=== PATIENT | female | born 1960 | race Caucasian/White ===

== ENCOUNTER 2023-10-29 02:44 | Outpatient (RCR) | payer MEDICAID, SELFPAY ==
[2023-10-10] MEDS: Normal Saline Flush 10 ML SYR IVP (10:57)
[2023-10-10 11:10] LABS: Abs Immature Grans 0.04 10^3/uL (0.0-0.06); Absolute Basophil Count 0.08 10^3/uL (0.0-0.2); Absolute Eosinophil Count 1.01 10^3/uL (0.0-0.7); Absolute Lymphocyte Count 3.07 10^3/uL (1.2-3.4); Absolute Neutrophil Count 4.87 10^3/uL (1.2-6.7); Basophils % 0.8 %; Eosinophils % 10.2 %; HCT 39.3 % (36.0-46.0); HGB 13.2 g/dL (11.2-15.7); Immature Grans % 0.4 %; Lymphocytes % 31.1 %; MCH 27.9 pg (27.0-33.0); MCHC 33.6 % (32.0-36.0); MCV 83 fL (80-95); MPV 10.7 fL (8.0-11.0); Monocytes % 8.1 %; Neutrophils % 49.4 %; Platelet Count 238 10^3/uL (130-400); RBC 4.73 10^6/uL (3.93-5.22); RDW 15.7 % (11.7-14.6); RDW-SD 46.6 fL; WBC 9.87 10^3/uL (4.4-10.8)
[2023-10-10 11:26] LABS: ALT 37 U/L (14-59); AST 22 U/L (15-37); Albumin 3.7 g/dL (3.4-5.0); Alkaline Phosphatase 120 U/L (46-116); Anion Gap 6.1 mmol/L (3-11); BUN 11 mg/dL (7-18); Bilirubin, Total 0.26 mg/dL (0.2-1.0); CO2 28.9 mmol/L (21.0-32.0); CREATININE 0.9 mg/dL (0.55-1.02); Calcium 9.2 mg/dL (8.5-10.1); Chloride 108 mmol/L (98-107); Estimated GFR 71.83 (mL/min/1.73m2); Glucose 97 mg/dL (74-106); Potassium 4.2 mmol/L (3.5-5.1); Sodium 143 mmol/L (136-145)
[2023-10-29] MEDS: Normal Saline Flush 10 ML SYR IVP (10:25)
[2023-10-29 10:38] LABS: Abs Immature Grans 0.03 10^3/uL (0.0-0.06); Absolute Basophil Count 0.05 10^3/uL (0.0-0.2); Absolute Eosinophil Count 0.03 10^3/uL (0.0-0.7); Absolute Lymphocyte Count 2.31 10^3/uL (1.2-3.4); Absolute Monocyte Count 0.64 10^3/uL (0.1-0.8); Basophils % 0.6 %; Eosinophils % 0.4 %; HCT 35.1 % (36.0-46.0); HGB 11.6 g/dL (11.2-15.7); Immature Grans % 0.4 %; Lymphocytes % 29.4 %; MCH 27.7 pg (27.0-33.0); Monocytes % 8.1 %; Neutrophils % 61.1 %; Platelet Count 74 10^3/uL (130-400); RBC 4.19 10^6/uL (3.93-5.22); RDW 17.6 % (11.7-14.6); RDW-SD 50.8 fL; WBC 7.86 10^3/uL (4.4-10.8)
[2023-10-29 10:54] LABS: Diff Comment Diff Reviewed; MCV 84 fL (80-95); RBC Morphology Normal
[2023-10-29 10:58] LABS: ALT 36 U/L (14-59); AST 28 U/L (15-37); Albumin 3.4 g/dL (3.4-5.0); Alkaline Phosphatase 130 U/L (46-116); Anion Gap 9.2 mmol/L (3-11); BUN 14 mg/dL (7-18); Bilirubin, Total 0.34 mg/dL (0.2-1.0); CO2 26.8 mmol/L (21.0-32.0); CREATININE 0.9 mg/dL (0.55-1.02); Calcium 8.7 mg/dL (8.5-10.1); Chloride 107 mmol/L (98-107); Estimated GFR 71.83 (mL/min/1.73m2); Glucose 121 mg/dL (74-106); Potassium 3.3 mmol/L (3.5-5.1); Sodium 143 mmol/L (136-145); Total Protein 6.5 g/dL (6.4-8.2)
== END 2023-11-05 23:59 | disposition home or self-care (01) ==
LOC: INF 02:44
PROVIDERS: PCP Family Medicine; Visit Provider Physician Assistant Medical
DX: C50.411 Malignant neoplasm of upper-outer quadrant of right female breast (principal); C50.911 Malignant neoplasm of unspecified site of right female breast; Z17.0 Estrogen receptor positive status [ER+]; Z79.899 Other long term (current) drug therapy
CPT/HCPCS: 36591; 80053; 85025

== ENCOUNTER 2023-12-17 01:41 | Outpatient (CLI) | payer MEDICAID, SELFPAY ==
--- NOTE | 2023-12-17 09:30 | DI.US_ITS ---
APPROVED REPORT EXAM: Comprehensive 2D, Doppler, and color-flow Echocardiogram Patient Location: Out-Patient Neon Technician: Rosa Ortega RDCS (AE) Indications: Malignant neoplasm of UOQ of rt breast, Estrogen receptor Other Information Study Quality: Adequate Conclusion Mild concentric left ventricular hypertrophy. Ejection fraction is 60%. Wall motion is normal Normal right ventricular size and function Both atria are normal in size Aortic valve is mildly sclerotic and trileaflet with trace regurgitation Trace mitral and tricuspid regurgitation Estimated right ventricular systolic pressure is 30 mmHg Wall motion Left Ventricle The left ventricle is normal size. The left ventricular systolic function is normal. The left ventric ular ejection fraction is within the normal range. GLS is 15% Mild concentric left ventricular hypert rophy. There is normal LV segmental wall motion. There is no ventricular septal defect visualized. LV EF is 60%. Right Ventricle The right ventricle is normal size. The right ventricular systolic function is normal. Atria The left atrium size is normal. The right atrium size is normal. The interatrial septum is intact wit h no evidence for an atrial septal defect. Aortic Valve The Aortic valve is mildly sclerotic. Aortic valve is trileaflet. No hemodynamically significant valv ular aortic stenosis. Trace aortic regurgitation. Mitral Valve The mitral valve is normal in structure. No evidence of mitral valve stenosis. Trace mitral regurgita tion. Tricuspid Valve The tricuspid valve is normal in structure. There is no tricuspid valve stenosis. Trace tricuspid reg urgitation. The RVSP is 30.2 mmHg. Pulmonic Valve The pulmonary valve is normal in structure. There is no pulmonic valvular stenosis. Trace pulmonic re gurgitation. Great Vessels The aortic root is normal in size. The ascending aorta is normal in size. Aortic arch is normal in ca liber. IVC is normal in size and collapses >50% with inspiration. Pericardium There is no pericardial effusion. 2D Dimensions IVSD d PLAX 1.20 cm F: 0.6-1.0 Ao Root d 2.98 cm F: 2.7 - 3.3 LVPW d PLAX 1.24 cm F: 0.6 - 1.0 Ao Asc Diam d 2.88 cm F: 2.3 - 3.1 LVID d PLAX 4.05 cm F: 3.8 - 5.2 LVDs 2.81 cm F: 2.2 - 3.5 LV EF Teichholz 58.5 % FS 30.53 % LV EDV (Teich) 72.1 mL LV ESV (Teich) 29.9 mL M-Mode TAPSE 2.47 cm (M/F) >1.7 Auto EF LV EDV A4C 81.2 mL LV EDV A2C 107.3 mL LV EDV BP 92.5 mL LV ESV A4C 33.2 mL LV ESV A2C 39.8 mL LV ESV BP 36.2 mL LVEF(%) A4C 59.2 % LVEF(%) A2C 62.9 % LVEF(%) BP 60.9 % LV SV A4C 48.1 ml LV SV A2C 67.5 ml LV SV BP 56.4 ml LV CO A4C 4.3 L/min LV CO A2C 6.2 L/min LV CO BP 5.3 L/min HR A4C 90.45 BPM HR A2C 91.84 BPM LV EDV Index (BP) LV Strain Long Pk Overal Avg (s) 14.98 LA Volume LA Length A4C 4.5 cm LA Length A2C 4.1 cm LA Area A4C s 12.40 cm2 LA Area A2C s 12.57 cm2 LA Vol A4C A-L 28.78 mL LA Vol A2C A-L 32.87 mL LA Vol Biplane A-L 32.4 mL LA Vol/BSA A4C A-L LA Vol/BSA A2C A-L LA Vol/BSA BP A-L 14.7 mL/m2 LA Vol A4C MOD 26.4 mL LA Vol A2C MOD 28.9 mL LA Vol BP MOD 28.8 mL RA Volume RA Area A4C 9.5 cm2 RA ESV A4C (A-L) 21.6mL RA Vol/BSA A4C A-L RA Length A4C 3.6 cm RA ESV A4C (MOD) 20.1mL LV Diastology MV E' medial 0.092 (>0.07 m/s) MV E Vmax 0.66 (0.4-1.3 m/s) MV E/E' MED 7.16 (<14) MV A Vmax 1.05 (0.4-1.3 m/s) MV E' lateral 0.123 (>0.1 m/s) E/A Ratio 0.6 MV E/E' LAT 5.34 (<14) MV E' Average 0.108 m/s MV E/E'(average) 6.12 Aortic Valve AoV Vmax 1.93 m/s LVOT Vmax 1.45 m/s AoV Peak Grad 41.0 mmHg LVOT Peak Grad 8.4 mmHg AoV Area (Vmax) 2.38 cm2 LVOT VTI 0.222 m AoV VTI 0.309 m LVOT Mean Grad 5.3 mmHg AoV Mean Rik. 1.35 m/s LVOT SV 70.55 mL AoV Mean Grad 8.4 mmHg LVOT Diam s 2.00 cm AoV Area (VTI) 2.28 cm2 AV Regurg Peak Gr. 14.93 mmHg Velocity Ratio 0.75 AR Decel Pepin 2.3m/sec2 AR DT 1794 msec AR PHT 520 msec AR Vmax 4.09 m/s Mitral Valve MV DT 236 (160-240 msec) MV Vmax TIPS 1.22 m/s MV Mean Grad 2.8 (<2mmHg) MV VTI 0.246 m Pulmonary Valve PV Vmax 1.11 (0.5-1.5 m/s) RVOT Vmax 0.93 m/s PV Peak Grad 4.9 mmHg RVOT Peak Gr. 3.5 mmHg PV Mean Rik 0.82 m/s RVOT VTI 0.177 m PV Mean Grad 3.0 mmHg RVOT Mean Gr. 1.9 mmHg Tricuspid Valve RA Pressure 3.00 mmHg TR Vmax 2.61 m/s TV S' 0.19 m/s TR Peak Grad 27.1 mmHg RVSP (TR) 30.2 mmHg
== END 2023-12-17 02:01 ==
LOC: DI 01:41
PROVIDERS: PCP Family Medicine; Visit Provider Internal Medicine
DX: I51.7 Cardiomegaly (principal); I34.0 Nonrheumatic mitral (valve) insufficiency
CPT/HCPCS: 93306

== ENCOUNTER 2023-12-31 01:54 | Outpatient (RCR) | payer MEDICAID, SELFPAY ==
[2023-12-10] MEDS: Normal Saline Flush 10 ML SYR IVP (09:44)
[2023-12-10 09:54] LABS: Abs Immature Grans 0.03 10^3/uL (0.0-0.06); Absolute Basophil Count 0.04 10^3/uL (0.0-0.2); Absolute Eosinophil Count 0.05 10^3/uL (0.0-0.7); Absolute Monocyte Count 0.65 10^3/uL (0.1-0.8); Absolute Neutrophil Count 3.71 10^3/uL (1.2-6.7); Basophils % 0.6 %; Eosinophils % 0.7 %; HGB 11.2 g/dL (11.2-15.7); Immature Grans % 0.4 %; Lymphocytes % 36.7 %; MCH 29.6 pg (27.0-33.0); MCHC 32.9 % (32.0-36.0); MCV 90 fL (80-95); MPV 10.5 fL (8.0-11.0); Monocytes % 9.2 %; Neutrophils % 52.4 %; Platelet Count 107 10^3/uL (130-400); RBC 3.79 10^6/uL (3.93-5.22); RDW-SD 65.8 fL; WBC 7.08 10^3/uL (4.4-10.8)
[2023-12-10 10:14] LABS: ALT 36 U/L (14-59); AST 19 U/L (15-37); Albumin 3.7 g/dL (3.4-5.0); Alkaline Phosphatase 141 U/L (46-116); Anion Gap 5.6 mmol/L (3-11); BUN 15 mg/dL (7-18); Bilirubin, Total 0.33 mg/dL (0.2-1.0); CO2 28.4 mmol/L (21.0-32.0); CREATININE 0.9 mg/dL (0.55-1.02); Chloride 108 mmol/L (98-107); Estimated GFR 71.83 (mL/min/1.73m2); Glucose 94 mg/dL (74-106); Potassium 4.1 mmol/L (3.5-5.1); Sodium 142 mmol/L (136-145)
[2023-12-31 10:52] LABS: Abs Immature Grans 0.03 10^3/uL (0.0-0.06); Absolute Basophil Count 0.02 10^3/uL (0.0-0.2); Absolute Eosinophil Count 0.03 10^3/uL (0.0-0.7); Absolute Monocyte Count 0.49 10^3/uL (0.1-0.8); Absolute Neutrophil Count 3.14 10^3/uL (1.2-6.7); Basophils % 0.3 %; Eosinophils % 0.5 %; HCT 31.5 % (36.0-46.0); HGB 10.4 g/dL (11.2-15.7); Immature Grans % 0.5 %; Lymphocytes % 41.2 %; MCH 30.6 pg (27.0-33.0); MCV 93 fL (80-95); MPV 11.4 fL (8.0-11.0); Monocytes % 7.8 %; Neutrophils % 49.7 %; Platelet Count 111 10^3/uL (130-400); RDW 18.6 % (11.7-14.6); RDW-SD 62.9 fL; WBC 6.31 10^3/uL (4.4-10.8)
[2023-12-31 11:09] LABS: ALT 32 U/L (14-59); AST 19 U/L (15-37); Albumin 3.6 g/dL (3.4-5.0); Alkaline Phosphatase 129 U/L (46-116); Anion Gap 7.3 mmol/L (3-11); BUN 13 mg/dL (7-18); Bilirubin, Total 0.34 mg/dL (0.2-1.0); CO2 27.7 mmol/L (21.0-32.0); CREATININE 0.8 mg/dL (0.55-1.02); Calcium 8.7 mg/dL (8.5-10.1); Chloride 108 mmol/L (98-107); Estimated GFR 82.74 (mL/min/1.73m2); Glucose 94 mg/dL (74-106); Potassium 3.6 mmol/L (3.5-5.1); Sodium 143 mmol/L (136-145); Total Protein 6.6 g/dL (6.4-8.2)
[2023-12-31] MEDS: Normal Saline Flush 10 ML SYR IVP (11:54)
== END 2024-01-05 23:59 | disposition home or self-care (01) ==
LOC: INF 01:54
PROVIDERS: PCP Family Medicine; Visit Provider Physician Assistant Medical
DX: C50.411 Malignant neoplasm of upper-outer quadrant of right female breast (principal); Z17.0 Estrogen receptor positive status [ER+]; C50.911 Malignant neoplasm of unspecified site of right female breast; Z79.899 Other long term (current) drug therapy; Z45.2 Encounter for adjustment and management of vascular access device
CPT/HCPCS: 36591; 80053; 85025

== ENCOUNTER 2024-03-28 00:37 | Outpatient (RCR) | payer MEDICAID, SELFPAY ==
[2024-03-28] MEDS: Normal Saline Flush 10 ML SYR IVP (09:20)
[2024-03-28 09:44] LABS: Abs Immature Grans 0.02 10^3/uL (0.0-0.06); Absolute Basophil Count 0.06 10^3/uL (0.0-0.2); Absolute Eosinophil Count 0.36 10^3/uL (0.0-0.7); Absolute Lymphocyte Count 3.23 10^3/uL (1.2-3.4); Absolute Monocyte Count 0.46 10^3/uL (0.1-0.8); Absolute Neutrophil Count 3.55 10^3/uL (1.2-6.7); Basophils % 0.8 %; Eosinophils % 4.7 %; HCT 37.9 % (36.0-46.0); HGB 12.5 g/dL (11.2-15.7); Immature Grans % 0.3 %; Lymphocytes % 42.1 %; MCH 29.7 pg (27.0-33.0); MCV 90 fL (80-95); Neutrophils % 46.1 %; Platelet Count 175 10^3/uL (130-400); RBC 4.21 10^6/uL (3.93-5.22); RDW 13.6 % (11.7-14.6); RDW-SD 44.9 fL; WBC 7.68 10^3/uL (4.4-10.8)
[2024-03-28 10:04] LABS: ALT 38 U/L (14-59); AST 24 U/L (15-37); Albumin 3.8 g/dL (3.4-5.0); Alkaline Phosphatase 121 U/L (46-116); Anion Gap 7.4 mmol/L (3-11); BUN 18 mg/dL (7-18); Bilirubin, Total 0.31 mg/dL (0.2-1.0); CO2 27.6 mmol/L (21.0-32.0); CREATININE 0.9 mg/dL (0.55-1.02); Calcium 9.3 mg/dL (8.5-10.1); Chloride 108 mmol/L (98-107); Estimated GFR 71.39 (mL/min/1.73m2); Glucose 90 mg/dL (74-106); Potassium 3.9 mmol/L (3.5-5.1); Sodium 143 mmol/L (136-145); Total Protein 7.1 g/dL (6.4-8.2)
== END 2024-04-04 23:59 | disposition home or self-care (01) ==
LOC: INF 00:37
PROVIDERS: PCP Family Medicine; Visit Provider Physician Assistant Medical
DX: C50.411 Malignant neoplasm of upper-outer quadrant of right female breast (principal); Z79.899 Other long term (current) drug therapy
CPT/HCPCS: 36591; 80053; 85025

== ENCOUNTER 2024-04-18 00:21 | Outpatient (RCR) | payer MEDICAID, SELFPAY ==
[2024-04-18] MEDS: Normal Saline Flush 10 ML SYR IVP (09:24)
[2024-04-18 09:31] LABS: Abs Immature Grans 0.04 10^3/uL (0.0-0.06); Absolute Basophil Count 0.08 10^3/uL (0.0-0.2); Absolute Eosinophil Count 0.36 10^3/uL (0.0-0.7); Absolute Lymphocyte Count 4.01 10^3/uL (1.2-3.4); Absolute Monocyte Count 0.54 10^3/uL (0.1-0.8); Absolute Neutrophil Count 3.58 10^3/uL (1.2-6.7); Basophils % 0.9 %; Eosinophils % 4.2 %; HCT 40.1 % (36.0-46.0); HGB 13.5 g/dL (11.2-15.7); Immature Grans % 0.5 %; Lymphocytes % 46.6 %; MCH 29.1 pg (27.0-33.0); MCHC 33.7 % (32.0-36.0); MCV 86 fL (80-95); MPV 10.9 fL (8.0-11.0); Monocytes % 6.3 %; Neutrophils % 41.5 %; Platelet Count 194 10^3/uL (130-400); RBC 4.64 10^6/uL (3.93-5.22); RDW 14.1 % (11.7-14.6); RDW-SD 44.3 fL; WBC 8.61 10^3/uL (4.4-10.8)
[2024-04-18 09:47] LABS: ALT 46 U/L (14-59); AST 34 U/L (15-37); Albumin 3.7 g/dL (3.4-5.0); Alkaline Phosphatase 123 U/L (46-116); Anion Gap 9.4 mmol/L (3-11); BUN 16 mg/dL (7-18); Bilirubin, Total 0.4 mg/dL (0.2-1.0); CO2 29.6 mmol/L (21.0-32.0); CREATININE 0.9 mg/dL (0.55-1.02); Calcium 9.6 mg/dL (8.5-10.1); Chloride 104 mmol/L (98-107); Estimated GFR 71.39 (mL/min/1.73m2); Glucose 95 mg/dL (74-106); Potassium 3.8 mmol/L (3.5-5.1); Sodium 143 mmol/L (136-145); Total Protein 7.6 g/dL (6.4-8.2)
== END 2024-05-05 23:59 | disposition home or self-care (01) ==
LOC: INF 00:21
PROVIDERS: PCP Family Medicine; Visit Provider Physician Assistant Medical
DX: Z79.899 Other long term (current) drug therapy (principal); C50.411 Malignant neoplasm of upper-outer quadrant of right female breast; Z17.0 Estrogen receptor positive status [ER+]
CPT/HCPCS: 36591; 80053; 85025

== ENCOUNTER 2024-05-30 00:33 | Outpatient (RCR) | payer MEDICAID, SELFPAY ==
[2024-05-09 09:50] LABS: Abs Immature Grans 0.03 10^3/uL (0.0-0.06); Absolute Basophil Count 0.06 10^3/uL (0.0-0.2); Absolute Lymphocyte Count 2.98 10^3/uL (1.2-3.4); Absolute Monocyte Count 0.48 10^3/uL (0.1-0.8); Absolute Neutrophil Count 3.71 10^3/uL (1.2-6.7); Basophils % 0.8 %; HCT 38.9 % (36.0-46.0); HGB 12.9 g/dL (11.2-15.7); Immature Grans % 0.4 %; Lymphocytes % 39.4 %; MCH 28.2 pg (27.0-33.0); MCHC 33.2 % (32.0-36.0); MCV 85 fL (80-95); MPV 11.9 fL (8.0-11.0); Monocytes % 6.3 %; Neutrophils % 49.1 %; Platelet Count 132 10^3/uL (130-400); RBC 4.58 10^6/uL (3.93-5.22); RDW 14.8 % (11.7-14.6); RDW-SD 45.2 fL; WBC 7.56 10^3/uL (4.4-10.8)
[2024-05-09 10:08] LABS: ALT 41 U/L (14-59); AST 37 U/L (15-37); Albumin 3.6 g/dL (3.4-5.0); Alkaline Phosphatase 107 U/L (46-116); Anion Gap 8.2 mmol/L (3-11); BUN 14 mg/dL (7-18); Bilirubin, Total 0.4 mg/dL (0.2-1.0); CO2 28.8 mmol/L (21.0-32.0); CREATININE 0.8 mg/dL (0.55-1.02); Calcium 9.5 mg/dL (8.5-10.1); Chloride 105 mmol/L (98-107); Estimated GFR 82.23 (mL/min/1.73m2); Glucose 133 mg/dL (74-106); Potassium 3.5 mmol/L (3.5-5.1); Sodium 142 mmol/L (136-145); Total Protein 7.3 g/dL (6.4-8.2)
[2024-05-09] MEDS: Normal Saline Flush 10 ML SYR IVP (10:57)
[2024-05-30 09:23] LABS: Abs Immature Grans 0.04 10^3/uL (0.0-0.06); Absolute Basophil Count 0.06 10^3/uL (0.0-0.2); Absolute Eosinophil Count 0.21 10^3/uL (0.0-0.7); Absolute Lymphocyte Count 2.77 10^3/uL (1.2-3.4); Absolute Neutrophil Count 3.49 10^3/uL (1.2-6.7); Basophils % 0.9 %; HCT 37.8 % (36.0-46.0); HGB 12.3 g/dL (11.2-15.7); Immature Grans % 0.6 %; Lymphocytes % 39.7 %; MCH 28.2 pg (27.0-33.0); MCHC 32.5 % (32.0-36.0); MCV 87 fL (80-95); MPV 11.3 fL (8.0-11.0); Monocytes % 5.7 %; Neutrophils % 50.1 %; Platelet Count 106 10^3/uL (130-400); RBC 4.36 10^6/uL (3.93-5.22); RDW 15.6 % (11.7-14.6); RDW-SD 49.5 fL; WBC 6.97 10^3/uL (4.4-10.8)
[2024-05-30] MEDS: Normal Saline Flush 10 ML SYR IVP (09:32)
[2024-05-30 09:37] LABS: ALT 49 U/L (14-59); AST 48 U/L (15-37); Albumin 3.5 g/dL (3.4-5.0); Alkaline Phosphatase 116 U/L (46-116); Anion Gap 8.6 mmol/L (3-11); BUN 17 mg/dL (7-18); Bilirubin, Total 0.5 mg/dL (0.2-1.0); CO2 28.4 mmol/L (21.0-32.0); CREATININE 0.8 mg/dL (0.55-1.02); Calcium 9.6 mg/dL (8.5-10.1); Chloride 105 mmol/L (98-107); Estimated GFR 82.23 (mL/min/1.73m2); Glucose 161 mg/dL (74-106); Potassium 3.4 mmol/L (3.5-5.1); Sodium 142 mmol/L (136-145); Total Protein 7.3 g/dL (6.4-8.2)
== END 2024-06-04 23:59 | disposition home or self-care (01) ==
LOC: INF 00:33
PROVIDERS: PCP Family Medicine; Visit Provider Physician Assistant Medical
DX: C50.411 Malignant neoplasm of upper-outer quadrant of right female breast (principal); Z17.0 Estrogen receptor positive status [ER+]; Z79.899 Other long term (current) drug therapy; Z45.2 Encounter for adjustment and management of vascular access device
CPT/HCPCS: 36591; 80053; 85025

== ENCOUNTER 2024-06-20 00:34 | Outpatient (RCR) | payer MEDICAID, SELFPAY ==
[2024-06-20] MEDS: Normal Saline Flush 10 ML SYR IVP (09:21)
[2024-06-20 09:30] LABS: Abs Immature Grans 0.02 10^3/uL (0.0-0.06); Absolute Basophil Count 0.06 10^3/uL (0.0-0.2); Absolute Eosinophil Count 0.22 10^3/uL (0.0-0.7); Absolute Monocyte Count 0.43 10^3/uL (0.1-0.8); Absolute Neutrophil Count 3.32 10^3/uL (1.2-6.7); Basophils % 0.9 %; Eosinophils % 3.4 %; HCT 37.2 % (36.0-46.0); HGB 12.2 g/dL (11.2-15.7); Immature Grans % 0.3 %; Lymphocytes % 38.2 %; MCH 27.9 pg (27.0-33.0); MCHC 32.8 % (32.0-36.0); MCV 85 fL (80-95); MPV 11.2 fL (8.0-11.0); Monocytes % 6.6 %; Neutrophils % 50.6 %; RBC 4.38 10^6/uL (3.93-5.22); RDW-SD 49.7 fL; WBC 6.55 10^3/uL (4.4-10.8)
[2024-06-20 09:42] LABS: ALT 42 U/L (14-59); AST 47 U/L (15-37); Albumin 3.7 g/dL (3.4-5.0); Alkaline Phosphatase 121 U/L (46-116); Anion Gap 7.2 mmol/L (3-11); BUN 17 mg/dL (7-18); Bilirubin, Total 0.6 mg/dL (0.2-1.0); CO2 27.8 mmol/L (21.0-32.0); CREATININE 0.8 mg/dL (0.55-1.02); Calcium 9.4 mg/dL (8.5-10.1); Chloride 104 mmol/L (98-107); Estimated GFR 82.23 (mL/min/1.73m2); Glucose 141 mg/dL (74-106); Potassium 3.5 mmol/L (3.5-5.1); Sodium 139 mmol/L (136-145); Total Protein 7.7 g/dL (6.4-8.2)
[2024-06-20 09:55] LABS: Diff Comment Diff Reviewed; Platelet Count 78 10^3/uL (130-400); RBC Morphology Normal
== END 2024-07-05 23:59 | disposition home or self-care (01) ==
LOC: INF 00:34
PROVIDERS: PCP Family Medicine; Visit Provider Physician Assistant Medical
DX: C50.411 Malignant neoplasm of upper-outer quadrant of right female breast (principal); Z17.0 Estrogen receptor positive status [ER+]; Z79.899 Other long term (current) drug therapy; Z45.2 Encounter for adjustment and management of vascular access device
CPT/HCPCS: 36591; 80053; 85025

== ENCOUNTER 2024-08-01 00:39 | Outpatient (RCR) | payer MEDICAID, SELFPAY ==
[2024-07-16] MEDS: Normal Saline Flush 10 ML SYR IVP (09:55)
[2024-07-16 10:15] LABS: Abs Immature Grans 0.01 10^3/uL (0.0-0.06); Absolute Basophil Count 0.05 10^3/uL (0.0-0.2); Absolute Eosinophil Count 0.24 10^3/uL (0.0-0.7); Absolute Lymphocyte Count 1.98 10^3/uL (1.2-3.4); Absolute Monocyte Count 0.42 10^3/uL (0.1-0.8); Absolute Neutrophil Count 3.34 10^3/uL (1.2-6.7); Basophils % 0.8 %; HCT 36.4 % (36.0-46.0); HGB 11.8 g/dL (11.2-15.7); Immature Grans % 0.2 %; Lymphocytes % 32.8 %; MCH 27.7 pg (27.0-33.0); MCHC 32.4 % (32.0-36.0); MCV 85 fL (80-95); MPV 10.3 fL (8.0-11.0); Neutrophils % 55.2 %; RBC 4.26 10^6/uL (3.93-5.22); RDW 16.3 % (11.7-14.6); RDW-SD 50.7 fL; WBC 6.04 10^3/uL (4.4-10.8)
[2024-07-16 10:32] LABS: Platelet Count 62 10^3/uL (130-400)
[2024-07-16 10:33] LABS: ALT 51 U/L (14-59); AST 65 U/L (15-37); Albumin 3.8 g/dL (3.4-5.0); Alkaline Phosphatase 131 U/L (46-116); Anion Gap 10.1 mmol/L (3-11); BUN 11 mg/dL (7-18); Bilirubin, Total 0.8 mg/dL (0.2-1.0); CO2 27.9 mmol/L (21.0-32.0); CREATININE 0.7 mg/dL (0.55-1.02); Calcium 9.4 mg/dL (8.5-10.1); Chloride 105 mmol/L (98-107); Diff Comment PLT Morph Reviewed; Estimated GFR 96.52 (mL/min/1.73m2); Glucose 136 mg/dL (74-106); Potassium 3.5 mmol/L (3.5-5.1); RBC Morphology Normal; Sodium 143 mmol/L (136-145); Total Protein 7.6 g/dL (6.4-8.2)
[2024-07-25 12:13] LABS: Abs Immature Grans 0.02 10^3/uL (0.0-0.06); Absolute Basophil Count 0.06 10^3/uL (0.0-0.2); Absolute Eosinophil Count 0.18 10^3/uL (0.0-0.7); Absolute Lymphocyte Count 2.46 10^3/uL (1.2-3.4); Absolute Monocyte Count 0.41 10^3/uL (0.1-0.8); Absolute Neutrophil Count 3.04 10^3/uL (1.2-6.7); Eosinophils % 2.9 %; HGB 12.4 g/dL (11.2-15.7); Immature Grans % 0.3 %; Lymphocytes % 39.9 %; MCH 27.9 pg (27.0-33.0); MCHC 32.6 % (32.0-36.0); MCV 86 fL (80-95); MPV 11.1 fL (8.0-11.0); Monocytes % 6.6 %; Neutrophils % 49.3 %; RBC 4.44 10^6/uL (3.93-5.22); RDW-SD 50.2 fL; WBC 6.17 10^3/uL (4.4-10.8)
[2024-07-25] MEDS: Normal Saline Flush 10 ML SYR IVP (12:25)
[2024-07-25 12:27] LABS: ALT 58 U/L (14-59); AST 72 U/L (15-37); Albumin 4.1 g/dL (3.4-5.0); Alkaline Phosphatase 129 U/L (46-116); Anion Gap 10.6 mmol/L (3-11); BUN 11 mg/dL (7-18); Bilirubin, Total 0.7 mg/dL (0.2-1.0); CO2 28.4 mmol/L (21.0-32.0); CREATININE 0.9 mg/dL (0.55-1.02); Calcium 9.6 mg/dL (8.5-10.1); Chloride 102 mmol/L (98-107); Estimated GFR 71.39 (mL/min/1.73m2); Glucose 132 mg/dL (74-106); Potassium 3.6 mmol/L (3.5-5.1); Sodium 141 mmol/L (136-145)
[2024-07-25 12:37] LABS: Platelet Count 69 10^3/uL (130-400)
[2024-08-01] MEDS: Normal Saline Flush 10 ML SYR IVP (10:23)
[2024-08-01 10:29] LABS: Abs Immature Grans 0.02 10^3/uL (0.0-0.06); Absolute Basophil Count 0.05 10^3/uL (0.0-0.2); Absolute Eosinophil Count 0.24 10^3/uL (0.0-0.7); Absolute Lymphocyte Count 2.56 10^3/uL (1.2-3.4); Absolute Monocyte Count 0.45 10^3/uL (0.1-0.8); Absolute Neutrophil Count 3.51 10^3/uL (1.2-6.7); Basophils % 0.7 %; Eosinophils % 3.5 %; HCT 39.5 % (36.0-46.0); HGB 12.9 g/dL (11.2-15.7); Immature Grans % 0.3 %; Lymphocytes % 37.5 %; MCH 27.7 pg (27.0-33.0); MCHC 32.7 % (32.0-36.0); MCV 85 fL (80-95); Monocytes % 6.6 %; Neutrophils % 51.4 %; RBC 4.66 10^6/uL (3.93-5.22); RDW-SD 49.8 fL; WBC 6.83 10^3/uL (4.4-10.8)
[2024-08-01 10:40] LABS: Diff Comment PLT Morph Reviewed; Platelet Count 79 10^3/uL (130-400); RBC Morphology Normal
[2024-08-01 10:46] LABS: ALT 54 U/L (14-59); AST 67 U/L (15-37); Albumin 4.1 g/dL (3.4-5.0); Alkaline Phosphatase 128 U/L (46-116); Anion Gap 11.1 mmol/L (3-11); BUN 12 mg/dL (7-18); Bilirubin, Total 0.6 mg/dL (0.2-1.0); CO2 27.9 mmol/L (21.0-32.0); CREATININE 0.8 mg/dL (0.55-1.02); Calcium 9.5 mg/dL (8.5-10.1); Chloride 105 mmol/L (98-107); Estimated GFR 82.23 (mL/min/1.73m2); Glucose 93 mg/dL (74-106); Potassium 3.7 mmol/L (3.5-5.1); Sodium 144 mmol/L (136-145); Total Protein 7.8 g/dL (6.4-8.2)
== END 2024-08-04 23:59 | disposition home or self-care (01) ==
LOC: INF 00:39
PROVIDERS: Physician Assistant Medical; PCP Family Medicine; Visit Provider Nurse Practitioner Family
DX: Z79.899 Other long term (current) drug therapy (principal); C50.411 Malignant neoplasm of upper-outer quadrant of right female breast; Z17.0 Estrogen receptor positive status [ER+]
CPT/HCPCS: 36591; 80053; 85025

== ENCOUNTER 2024-08-22 00:49 | Outpatient (RCR) | payer MEDICAID, SELFPAY ==
[2024-08-22] MEDS: Normal Saline Flush 10 ML SYR IVP (09:50)
[2024-08-22 09:59] LABS: Abs Immature Grans 0.02 10^3/uL (0.0-0.06); HCT 36.5 % (36.0-46.0); HGB 12.0 g/dL (11.2-15.7); Immature Grans % 0.3 %; MCH 28.0 pg (27.0-33.0); MCHC 32.9 % (32.0-36.0); MCV 85 fL (80-95); MPV 11.6 fL (8.0-11.0); RBC 4.28 10^6/uL (3.93-5.22); RDW 16.1 % (11.7-14.6); RDW-SD 49.5 fL; WBC 5.76 10^3/uL (4.4-10.8)
[2024-08-22 10:16] LABS: ALT 46 U/L (14-59); AST 59 U/L (15-37); Albumin 3.9 g/dL (3.4-5.0); Alkaline Phosphatase 145 U/L (46-116); Anion Gap 11.0 mmol/L (3-11); BUN 10 mg/dL (7-18); Bilirubin, Total 0.9 mg/dL (0.2-1.0); CO2 28.0 mmol/L (21.0-32.0); Calcium 9.5 mg/dL (8.5-10.1); Chloride 104 mmol/L (98-107); Estimated GFR 96.52 (mL/min/1.73m2); Glucose 130 mg/dL (74-106); Platelet Count 55 10^3/uL (130-400); Potassium 3.4 mmol/L (3.5-5.1); RBC Morphology Normal; Sodium 143 mmol/L (136-145); Total Protein 7.6 g/dL (6.4-8.2)
== END 2024-09-04 23:59 | disposition home or self-care (01) ==
LOC: INF 00:49
PROVIDERS: Physician Assistant Medical; PCP Family Medicine; Visit Provider Nurse Practitioner Family
DX: Z79.899 Other long term (current) drug therapy (principal); C50.411 Malignant neoplasm of upper-outer quadrant of right female breast; Z17.0 Estrogen receptor positive status [ER+]
CPT/HCPCS: 36591; 80053; 85025

== ENCOUNTER 2024-09-19 00:30 | Outpatient (RCR) | payer MEDICAID, SELFPAY ==
[2024-09-05] MEDS: Normal Saline Flush 10 ML SYR IVP (09:46)
[2024-09-05 10:00] LABS: Abs Immature Grans 0.02 10^3/uL (0.0-0.06); HCT 39.5 % (36.0-46.0); HGB 12.8 g/dL (11.2-15.7); Immature Grans % 0.3 %; MCH 27.4 pg (27.0-33.0); MCHC 32.4 % (32.0-36.0); MCV 84 fL (80-95); RBC 4.68 10^6/uL (3.93-5.22); RDW 16.1 % (11.7-14.6); RDW-SD 49.4 fL; WBC 6.24 10^3/uL (4.4-10.8)
[2024-09-05 10:12] LABS: ALT 55 U/L (14-59); AST 69 U/L (15-37); Albumin 3.9 g/dL (3.4-5.0); Alkaline Phosphatase 139 U/L (46-116); Anion Gap 9.7 mmol/L (3-11); BUN 14 mg/dL (7-18); Bilirubin, Total 0.9 mg/dL (0.2-1.0); CO2 29.3 mmol/L (21.0-32.0); Calcium 9.7 mg/dL (8.5-10.1); Chloride 103 mmol/L (98-107); Estimated GFR 96.52 (mL/min/1.73m2); Glucose 107 mg/dL (74-106); Potassium 3.6 mmol/L (3.5-5.1); Sodium 142 mmol/L (136-145); Total Protein 7.8 g/dL (6.4-8.2)
[2024-09-05 10:29] LABS: Platelet Count 65 10^3/uL (130-400)
[2024-09-12] MEDS: Normal Saline Flush 10 ML SYR IVP (09:51)
[2024-09-12 10:01] LABS: Abs Immature Grans 0.01 10^3/uL (0.0-0.06); HCT 38.0 % (36.0-46.0); HGB 12.7 g/dL (11.2-15.7); Immature Grans % 0.2 %; MCH 28.2 pg (27.0-33.0); MCHC 33.4 % (32.0-36.0); MCV 84 fL (80-95); MPV 12.5 fL (8.0-11.0); RBC 4.51 10^6/uL (3.93-5.22); RDW 15.9 % (11.7-14.6); RDW-SD 48.7 fL; WBC 5.98 10^3/uL (4.4-10.8)
[2024-09-12 10:18] LABS: Platelet Count 68 10^3/uL (130-400); RBC Morphology Normal
[2024-09-12 10:20] LABS: ALT 52 U/L (14-59); AST 65 U/L (15-37); Albumin 3.9 g/dL (3.4-5.0); Alkaline Phosphatase 135 U/L (46-116); Anion Gap 6.7 mmol/L (3-11); BUN 12 mg/dL (7-18); Bilirubin, Total 0.8 mg/dL (0.2-1.0); CO2 28.3 mmol/L (21.0-32.0); Calcium 9.5 mg/dL (8.5-10.1); Chloride 105 mmol/L (98-107); Estimated GFR 96.52 (mL/min/1.73m2); Glucose 101 mg/dL (74-106); Potassium 3.8 mmol/L (3.5-5.1); Sodium 140 mmol/L (136-145); Total Protein 7.7 g/dL (6.4-8.2)
[2024-09-19 09:37] LABS: Abs Immature Grans 0.01 10^3/uL (0.0-0.06); HCT 41.5 % (36.0-46.0); HGB 13.8 g/dL (11.2-15.7); Immature Grans % 0.2 %; MCH 27.9 pg (27.0-33.0); MCHC 33.3 % (32.0-36.0); MCV 84 fL (80-95); MPV 10.4 fL (8.0-11.0); RBC 4.94 10^6/uL (3.93-5.22); RDW 15.5 % (11.7-14.6); RDW-SD 47.7 fL; WBC 6.41 10^3/uL (4.4-10.8)
[2024-09-19 09:43] LABS: Platelet Count 75 10^3/uL (130-400)
[2024-09-19 09:56] LABS: ALT 49 U/L (14-59); AST 57 U/L (15-37); Albumin 4.0 g/dL (3.4-5.0); Alkaline Phosphatase 139 U/L (46-116); Anion Gap 11.9 mmol/L (3-11); BUN 16 mg/dL (7-18); Bilirubin, Total 0.9 mg/dL (0.2-1.0); CO2 28.1 mmol/L (21.0-32.0); Calcium 9.7 mg/dL (8.5-10.1); Chloride 103 mmol/L (98-107); Estimated GFR 96.52 (mL/min/1.73m2); Glucose 130 mg/dL (74-106); Potassium 4.0 mmol/L (3.5-5.1); Sodium 143 mmol/L (136-145); Total Protein 8.0 g/dL (6.4-8.2)
== END 2024-10-05 23:59 | disposition home or self-care (01) ==
LOC: INF 00:30
PROVIDERS: Physician Assistant Medical; PCP Family Medicine; Visit Provider Nurse Practitioner Family
DX: Z79.899 Other long term (current) drug therapy (principal); C50.411 Malignant neoplasm of upper-outer quadrant of right female breast; Z17.0 Estrogen receptor positive status [ER+]; C50.919 Malignant neoplasm of unspecified site of unspecified female breast; Z45.2 Encounter for adjustment and management of vascular access device
CPT/HCPCS: 36415; 36591; 80053; 85025

== ENCOUNTER 2024-10-10 05:20 | Outpatient (RCR) | payer MEDICAID, SELFPAY ==
[2024-10-10 10:41] LABS: Abs Immature Grans 0.01 10^3/uL (0.0-0.06); HCT 37.9 % (36.0-46.0); HGB 12.6 g/dL (11.2-15.7); Immature Grans % 0.2 %; MCH 28.3 pg (27.0-33.0); MCHC 33.2 % (32.0-36.0); MCV 85 fL (80-95); MPV 10.9 fL (8.0-11.0); RBC 4.45 10^6/uL (3.93-5.22); RDW 15.8 % (11.7-14.6); RDW-SD 48.9 fL; WBC 4.74 10^3/uL (4.4-10.8)
[2024-10-10] MEDS: Normal Saline Flush 10 ML SYR IVP (10:48)
[2024-10-10 11:01] LABS: ALT 49 U/L (14-59); AST 68 U/L (15-37); Albumin 3.9 g/dL (3.4-5.0); Alkaline Phosphatase 148 U/L (46-116); Anion Gap 9.8 mmol/L (3-11); BUN 11 mg/dL (7-18); Bilirubin, Total 1.1 mg/dL (0.2-1.0); CO2 28.2 mmol/L (21.0-32.0); Calcium 9.7 mg/dL (8.5-10.1); Chloride 104 mmol/L (98-107); Glucose 163 mg/dL (74-106); Platelet Count 58 10^3/uL (130-400); Potassium 3.6 mmol/L (3.5-5.1); Sodium 142 mmol/L (136-145); Total Protein 7.5 g/dL (6.4-8.2)
[2024-10-10 11:02] LABS: Schistocytes 1+
== END 2024-11-04 23:59 | disposition home or self-care (01) ==
LOC: INF 05:20
PROVIDERS: Physician Assistant Medical; PCP Family Medicine; Visit Provider Nurse Practitioner Family
DX: Z79.899 Other long term (current) drug therapy (principal); C50.411 Malignant neoplasm of upper-outer quadrant of right female breast; Z17.0 Estrogen receptor positive status [ER+]; C50.919 Malignant neoplasm of unspecified site of unspecified female breast
CPT/HCPCS: 36415; 80053; 96523; 85025